=== PATIENT | female | born 1965 | race African-American/Black ===

== ENCOUNTER 2016-06-23 10:19 | Emergency (ER) | payer OTHER ==
[~2016-06-23 10:19] MED LIST: ALBUTEROL17 GM INH; AMOXICILLIN PO; ATARAX PO; BACTRIM DS TABL1 TA1 PO; BENTYL20 MG PO; BENZONATATE PO; CLARITIN10 M2 PO; DIFLUCAN PO; FLEXERIL PO; LEVAQUIN PO; LORTAB 5/500 TA1 TA1 PO; MEDROL4 MG/DOSE- PO; MUCINEX50 MG/BOX PO; NO MEDICATIONS; NYSTATIN CREAM; PEN-VEE K PO; PERCOCET5/325 PO; PHENERGAN DM PO; PHENERGAN25 MG PO; PREDNISONE PO; PROMETHAZINE D118 ML PO; RONDEC PO; SUDAFED 12 HOU120 M1 PO; TESSALON PERLE100 M1 DOB; TYLENOL #3 PO; TYLENOL ALLERGY1 T13 PO; VIBRAMYCIN100 M1 PO; VOLTAREN50 MG PO; VOLTAREN75 MG PO; ZITHROMAX PO
== END 2016-06-23 11:39 | disposition home or self-care (01) ==
LOC: SED 10:19
DX: J02.9 Acute pharyngitis, unspecified (principal); J06.9 Acute upper respiratory infection, unspecified; Z90.710 Acquired absence of both cervix and uterus
CPT/HCPCS: 87651; 99282

== ENCOUNTER 2016-06-28 18:28 | Emergency (ER) | payer OTHER ==
--- NOTE | ~2016-06-28 | CR63 ---
[facility]. [facility] A Service of [facility] & [facility] RADIOLOGY TEXT RESULTS PATIENT: CHANCE HEREDIA LOCATION: SED : 65 UNIT #: [id number] AGE: [address]: ATA JOSE SEX: F ORDER DR: [id number] [address] [address] [id number] MR#: [id number] Acc #: [id number] NAME: CHANCE HEREDIA : 1965 SEX: F STUDY DATE/TIME: 06/28/2016 18:34 UNIT: SED ROOM: STUDY DESCRIPTION: CR Chest 2 View Attending Physician: Ata Jose Ordering Physician: Oumou Villeda Primary Care Physician: Marv Johnson M.D. MEDICAL IMAGING REPORT This report is preliminary unless electronic signature is present. EXAM PA and lateral chest radiograph INDICATIONS Cough and sore throat for 8 days. COMPARISON Prior study from 03/31/2016. FINDINGS Heart size is within normal limits. Lungs appear clear with no definite focal infiltrates seen. There is no pneumothorax or pleural effusion. There is some discogenic degenerative disease at the spine, but again I am not convinced I can see any acute infiltrates. IMPRESSION No acute disease. Dictated by... Miriam Grijalva M.D. THIS IS AN ELECTRONICALLY VERIFIED REPORT Mirima Grijalva M.D. at 06/29/2016 4:40 PM AFF/to TD: 06/28/2016 19:47 JOB #: [id number] MEDICAL IMAGING REPORT Page 1 of 1
== END 2016-06-28 19:32 | disposition home or self-care (01) ==
LOC: SED 18:28
DX: J03.90 Acute tonsillitis, unspecified (principal); J30.9 Allergic rhinitis, unspecified; Z90.710 Acquired absence of both cervix and uterus
CPT/HCPCS: 71020; 94640; 99283

== ENCOUNTER 2016-07-14 06:03 | Emergency (ER) | payer OTHER ==
[2016-07-14 06:47] LABS: BASOPHIL# 0.1 X10e3 (0-0.3); BASOPHIL% 0.7 % (0-2.5); EOSINOPHIL# 0.1 X10e3 (0-0.7); EOSINOPHIL% 1.6 % (0.0-7.0); HEMATOCRIT 37.2 % (35.0-45.0); HEMOGLOBIN 12.3 gm/dL (12.0-16.0); LYMPHOCYTE# 1.6 X10e3 (1.0-3.5); LYMPHOCYTE% 18.3 % (17.0-45.0); MEAN CELL VOLUME 89.8 FL (83-96); MEAN CORPUSCULAR HEMOGLOBIN 29.8 PG (28-34); MEAN CORPUSCULAR HGB CONC 33.2 g/dL (30-36); MEAN PLATELET VOLUME 9.8 FL (6.5-11.5); MONOCYTE# 0.7 X10e3 (0-1.0); MONOCYTE% 7.6 % (3.0-12.0); NEUTROPHIL# 6.5 X10e3 (1.5-7.1); NEUTROPHIL% 71.8 % (40-75); PLATELET COUNT 194 X10e3 (140-420); RED BLOOD COUNT 4.14 X10e (3.90-5.30); RED CELL DISTRIBUTION WIDTH 13.5 % (11.0-15.5)
[2016-07-14 06:48] LABS: DIFF IND NO
[2016-07-14 07:09] LABS: ALBUMIN SERUM 3.3 g/dL (3.5-5.0); BILIRUBIN, DIRECT 0.1 mg/dL (0.0-0.2); BILIRUBIN,TOTAL 0.1 mg/dL (0.2-2.0); BUN/CREATININE RATIO 24.44; CALCIUM SERUM 9.1 mg/dL (8.4-10.2); CREATININE SERUM 0.9 mg/dL (0.6-1.4); GLOM FILT RATE Estimated 86.5 mL/min (>60); POTASSIUM 3.7 mmol/L (3.5-5.1); PROTEIN TOTAL SERUM 6.6 g/dL (6.0-8.3)
[2016-07-14 07:40] LABS: URINE SOURCE CLEAN CATCH
[2016-07-14 07:47] LABS: URINE APPEARANCE CLEAR; URINE BILIRUBIN NEG (NEG); URINE BLOOD NEG (NEG); URINE COLOR YELLOW; URINE GLUCOSE NEG (NORM); URINE KETONE NEG (NEG); URINE LEUKOCYTE ESTERASE NEG (NEG); URINE NITRATE NEG (NEG); URINE PH 5.5 (5-8); URINE PROTEIN NEG (NEG); URINE SPECIFIC GRAVITY 1.025 (1.003-1.035); URINE UROBILINOGEN 0.2 MG/DL (NORM)
[2016-07-14 07:49] LABS: MICRO INDICATED? NO
== END 2016-07-14 08:04 | disposition home or self-care (01) ==
LOC: SED 06:03
PROVIDERS: Emergency Medicine
DX: R10.11 Right upper quadrant pain (principal); Z90.710 Acquired absence of both cervix and uterus
CPT/HCPCS: 36415; 80048; 80076; 81003; 83690; 85025; 99284

== ENCOUNTER → 2016-11-28 | Outpatient (CLI) | payer OTHER | END | disposition home or self-care (01) | LOC: CBAR 10:11 | DX: Z01.812 Encounter for preprocedural laboratory examination (principal); E66.01 Morbid (severe) obesity due to excess calories | CPT/HCPCS: 36415; 84443; 86677; G0463 ==